=== PATIENT | male | born 1990 | race Caucasian/White ===

== ENCOUNTER → 2018-12-04 | Day surgery (SDC) | payer BC ==
[~2018-12-04] VITALS: Ht 182.9 cm; Wt 81.8 kg
[~2018-12-04] MED LIST: ADDERALL20 MG PO; ADVIL200 MG PO; FLONASE NASAL S16 GM NS; PROVENTIL0.09 MG/A1 IH
[2018-12-04 10:23] VITALS: BP 118/90; PULSE 82; TEMP 97.8
[2018-12-04 11:16] VITALS: BP 113/81; PULSE 76; TEMP 97.5
--- NOTE | 2018-12-04 11:16 | NUR ---
Patient brought back to [facility], alert and oriented. Ambulated to chair with two assist. Vital signs stable. States he would like a water and orange jello. Father and grandfather at bedside. Call mac within reach, will continue to monitor.
[2018-12-04 11:31] VITALS: BP 110/91; PULSE 73
--- NOTE | 2018-12-04 11:31 | NUR ---
Patient states he's feeling well denies any nausea or pain. Tolerating food and drink well. States he would also like a muffin. Vital signs stable, will continue to monitor.
[2018-12-04 11:47] VITALS: BP 111/62; PULSE 71
--- NOTE | 2018-12-04 12:33 | NUR ---
Dismissal instructions gone over with patient and patient's family. All verbalize understanding and all questions answered.
--- NOTE | 2018-12-04 12:45 | NUR ---
Patient discharged to patient entrance to private vehicle that patient's father is driving. Patient leaves thanking staff for services.
== END ==
LOC: SDCO 09:12
DX: K60.1 Chronic anal fissure (principal); K92.1 Melena; K59.00 Constipation, unspecified; J45.909 Unspecified asthma, uncomplicated; F98.8 Other specified behavioral and emotional disorders with onset usually occurring in childhood and adolescence; Z88.4 Allergy status to anesthetic agent
CPT/HCPCS: J2704; J7030